=== PATIENT | male | born 1965 | race Caucasian/White ===

== ENCOUNTER → 2024-09-08 15:51 | Outpatient (BNVA) | payer SELFPAY | PROVIDERS: PCP Registered Nurse; Visit Provider Nurse Practitioner Family | DX: I10 Essential (primary) hypertension (principal); R03.0 Elevated blood-pressure reading, without diagnosis of hypertension | CPT/HCPCS: 80053; 80061 ==

== ENCOUNTER 2025-07-07 12:23 | Emergency (ER) | payer SELFPAY ==
[2025-07-07 12:29] VITALS: BP 153/90; PULSE 101; RESP 18; TEMP 37.1; O2SAT 98; BMI 29.9
--- NOTE | 2025-07-07 13:45 | CTR_ITS ---
PROCEDURE INFORMATION: Exam: CT Abdomen And Pelvis With Contrast Exam date and time: 07/07/2025 3:08 PM Age: 59 years old Clinical indication: Other: Testicular pain; Additional info: Testicular pain, perineal swelling/redness, abscess TECHNIQUE: Imaging protocol: Computed tomography of the abdomen and pelvis with contrast. Radiation optimization: All CT scans at this facility use at least one of these dose optimization techniques: automated exposure control; mA and/or kV adjustment per patient size (includes targeted exams where dose is matched to clinical indication); or iterative reconstruction. Contrast material: [id number]; Contrast volume: 100 ml; Contrast route: INTRAVENOUS (IV); COMPARISON: No relevant prior studies available. RADIATION DOSE METRICS: Total DLP (mGy-cm): 684.33 FINDINGS: Lungs: The lung bases are clear. Liver: Unremarkable. No abnormally enhancing liver lesions. Gallbladder and biliary ducts: Unremarkable. No radiopaque cholelithiasis. No biliary ductal dilatation. Pancreas: Unremarkable. No pancreatic ductal dilatation. Spleen: Unremarkable. Adrenal glands: 0.9 cm left adrenal nodule, too small to characterize. Right adrenal gland is unremarkable. Kidneys and ureters: Symmetric bilateral renal enhancement. No hydronephrosis. Punctate nonobstructing left renal stone. Bilateral renal cortical hypoattenuating foci too small to characterize. Stomach and bowel: The stomach is unremarkable. No bowel obstruction. Sigmoid colonic diverticulosis without acute diverticulitis Appendix: Appendix is unremarkable. Intraperitoneal space: No ascites or intraperitoneal free air. Vasculature: Atherosclerotic aortoiliac intimal calcifications. Lymph nodes: 2.1 cm periportal lymph node, nonspecific. Urinary bladder: Unremarkable. Reproductive: Prostate gland is unremarkable. Small right hydrocele. Bones/joints: Small fluid around the right hip in the adductor musculature (series 3, image 80). Degenerative changes of the spine. No acute fracture or dislocation. Soft tissues: Small bilateral fat-containing inguinal hernias. Skin thickening and enhancement in the perineum. 3.2 x 1.0 cm ill-defined fluid collection (series 3, image 97). No subcutaneous tracking gas. Scrotal edema. CT/CT abdomen pelvis w con* [id number] IMPRESSION: 1. Perineal skin thickening and enhancement compatible with cellulitis. Phlegmonous changes with small developing abscess. 2. Mild scrotal edema. 3. Small right hydrocele. COMMENTS: Consistent with the [employer]'s Incidental Findings Committee white paper (J Am Dinesh Radiol 2017): Any incidental adrenal lesion less than 1 cm is likely benign. No follow-up imaging is recommended for these lesions per consensus recommendations based on imaging criteria. Further lab evaluation could be pursued if warranted based on clinical findings.
--- NOTE | 2025-07-07 13:51 | ED_ITS ---
HPI - Skin/Abscess/Foreign Bdy 2 General: Chief complaint: Skin/Abscess/Foreign Body Stated complaint: Bump in between Rectum and testicles hurts Time Seen by Provider: 07/07/25 13:33 Source: patient Mode of arrival: ambulatory Limitations: no limitations History of Present Illness: Patient is a 59-year-old male who presents emergency department complaining of lesion to the perineal region that has been present for the past 4 to 5 months. States that he has an area that he thinks began as an ingrown hair but has developed into redness and profuse swelling that involves the rectum all the way to his testicles, notes that the area is severely painful and worse with sitting. 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 He also notes that intermittently he will note greenish-brownish drainage of the area. However he is not feeling systemically ill as he is denying any fevers, nausea or vomiting, weakness, abdominal pain, or any other symptoms. Overall is noting that the pain is from rectum to testicles, and that the redness and swelling has been getting worse. Patient is not diabetic. MD complaint: abscess/boil and lesion Onset (ago): month(s) Location: buttocks and genitals Pain Consistency: constant Exacerbating factors: other (Sitting, movement) Context: other ( Thinks began as an ingrown hair ) Associated symptoms: Deny chills, fever(s), nausea or vomiting Treatments prior to arrival: none Related Data Home Medications ?Medication ?Instructions ?Recorded ?Confirmed ibuprofen 200 mg tablet (Advil) 400 mg PO QAM PRN Pain 07/07/25 07/07/25 magnesium 200 mg tablet 200 mg PO QAM 07/07/2507/07 milk thistle seed extract 175 mg 175 mg PO QAM 5 07/07/25 tablet Previous Rx's ?Medication ?Instructions ?Recorded doxycycline hyclate 100 mg tablet 100 mg PO BID 10 day s #20 tabs 07/07/25 Allergies Allergy/AdvReac Type Severity Reaction Status Date / Time No Known Allergies Allergy Verified 06/14/22 15:09 Review of Systems 2 General: Reports: 10 or more systems reviewed and unremarkable except in HPI and below Const: Denies: fever(s) or chills Card: Denies: chest pain Resp: Denies: dyspnea GI: Reports: rectal pain and rectal swelling; Denies: abdominal pain, nausea, vomiting or diarrhea : Reports: testicular pain and scrotal swelling Musc: Denies: extremity pain or joint pain Skin/Breast: Reports: erythema, skin pain, skin tenderness, skin swelling and new lesions; Denies: rash Neuro: Denies: headache(s) PFSH ED 2 PFSH: Surgical History Hx of lumbosacral spine surgery Hx of tonsillectomy Family History Father CAD (coronary artery disease) Mother Diabetes breast Hypertension Parkinson disease Brother , Massive Heart Attack No problems noted. Social History Smoking and tobacco/nicotine status: current every day tobacco/nicotine user Quit status (tobacco/nicotine): has tried quititng Substance/Drug Use: never Adopted: No Caregiver/support person: No Lives independently: Yes service: No Current occupational status: employed Do you think of yourself as: Straight/Heterosexual Current gender identity: Male Physical Exam 2 Const: COMMON NORMALS: no acute distress, average body habitus, patient oriented x3, no limitations, healthy appearing, alert and well nourished HENMT: COMMON NORMALS: normocephalic and atraumatic HEAD & SCALP: n ormocephalic and atraumatic Neck/C-Spine: COMMON NORMALS: full ROM, no lymphadenopathy, supple and no meningeal signs Resp: COMMON NORMALS: normal respiratory effort, No use of accessory muscles and clear to auscultation bilaterally AUSCULTATION: clear to auscultation bilaterally Cardio: COMMON NORMALS: regular rate and regular rhythm RATE: regular rate RHYTHM: regular rhythm GI: COMMON NORMALS: Soft to palpation and non-tender PALPATION: Yes Soft to palpation OTHER: There is a palpable area of fluctuance to the right of the patient's rectum, the perineum is diffusely red and tender and swollen. Easily reproducible tenderness to palpation from testicles to rectum. No active drainage noted. Extremity: COMMON NORMALS: full ROM and capillary refill normal Neuro: COMMON NORMALS: patient oriented x3 SENSORIUM/ORIENTATION: Yes alert MENINGEAL SIGNS: Yes no meningeal signs Skin: COMMON NORMALS: no rashes or lesions noted, no wounds and turgor normal GENERAL SKIN EXAM: no rashes or lesions noted and turgor normal Procedures Abscess I/D Site: sandra-rectal Local Anesthetic: lidocaine 2% and with epi Amount of anesthesia used (mL): 6 Technique: incised with #11 blade Amount of fluid expressed (mL): 10 Irrigation: Yes Packing used?: none Course 2 Vital Signs: Vital signs: Vital Signs Temperature 98.8 F 07/07/25 12:29 Pulse Rate 84 07/07/25 16:05 Respiratory Rate 18 07/07/25 12:29 Blood Pressure 148/84 07/07/25 16:05 Pulse Oximetry 96 07/07/25 16:05 Oxygen Delivery Me thod Room Air 07/07/25 16:05 MDM - Skin/Abscess/Foreign Bdy Medicial Decision Making This patient presented with an acute on chronic worsening of a perineal lesion, which on exam appears to be consistent with an abscess. He had no symptoms of systemic illness, this has been an issue for the past 4 to 5 months but states that recently has been getting to where he cannot sit without severe pain. As mentioned on exam there was fluctuance to an area of the perineum and evidence of surrounding cellulitis. He had no history of diabetes making Kierra's gangrene less likely, however labs were checked and reassuring. This included unremarkable inflammatory markers of CRP and ESR, no leukocytosis, and normal blood sugar. To rule out any deep space infection, CT abdomen and pelvis ordered showing the cellulitis as clinically commented on, and a small developing abscess. The CT finding was correlated with the physical exam and after I&D was able to express approximately 10 cc of drainage, with an incision and significant enough that did not require any packing. This did greatly improve the patient's symptoms and after IV Zosyn here in the emergency department, appears to be stable for discharge home and outpatient antibiotics for the evidence of surrounding cellulitis. He is informed on how to care for the wound at home, signs and symptoms to watch for, and importance of finishing out antibiotic therapy despite relief of symptoms. He will be given a few days off of work, and all other questions and concerns addressed. Lab Data 07/07/25 14:08 07/07/25 14:08 Radiology Impressions Abdomen/Pelvis CT 07/07/25 13:45 IMPRESSION: 1. Perineal skin thickening and enhancement compatible with cellulitis. Phlegmonous changes with small developing abscess. 2. Mild scrotal edema. 3. Small right hydrocele. COMMENTS: Consistent with the [employer]'s Incidental Findings Committee white paper (J Am Dinesh Radiol 2017): Any incidental adrenal lesion less than 1 cm is likely benign. No follow-up imaging is recommended for these lesions per consensus recommendations based on imaging criteria. Further lab evaluation could be pursued if warranted based on clinical findings. Laboratory Results WBC 9.23 10^3/uL (3.29-11.43) 07/07/25 14:08 RBC 4.59 10^6/uL (3.85-5.65) 07/07/25 14:08 Hgb 15.30 g/dL (11.27-16.99) 07/07/25 14:08 Hct 45.5 % (37-53) 07/07/25 14:08 MCV 99.1 fl (82-101) 07/07/25 14:08 MCH 33.3 pg (27-33) H 07/07/25 14:08 MCHC 33.6 g/dL (30-55) 07/07/25 14:08 RDW 12.2 % (12.1-15.1) 07/07/25 14:08 Plt Count 251 10^3/cmm (157-399) 07/07/25 14:08 MPV 9.3 fL (7.4-10.4) 07/07/25 14:08 Neut % (Auto) 66.3 % 07/07/25 14:08 Lymph % (Auto) 20.7 % 07/07/25 14:08 [place] % (Auto) 12.1 % 07/07/25 14:08 Eos % (Auto) 0.3 % 07/07/25 14:08 Baso % (Auto) 0.3 % 07/07/25 14:08 Neut # (Auto) 6.11 10^3/uL (1.8-7.7) 07/07/25 14:08 Lymph # (Auto) 1.9 10^3/uL (0.8-4.8) 07/07/25 14:08 [place] # (Auto) 1.1 10^3/uL (0.2-0.9) H 07/07/25 14:08 Eos # (Auto) 0.0 10^3/uL (0.0-0.8) 07/07/25 14:08 Baso # (Auto) 0.0 10^3/uL (0.0-0.1) 07/07/25 14:08 Nucleated RBC % (auto) 0 % 07/07/25 14:08 Nucleated RBCs # 0.0 /100WBC 07/07/25 14:08 ESR 6 mm/hr (0-10) 07/07/25 14:08 Sodium 140 mmol/L (136-145) 07/07/25 14:08 Potassium 3.9 mmol/L (3.5-5.1) 07/07/25 14:08 Chloride 102 mmol/L (98-107) 07/07/25 14:08 Carbon Dioxide 27 mmol/L (22-29) 07/07/25 14:08 Anion Gap 14.9 (5-19) 07/07/25 14:08 BUN 13 mg/dL (6-20) 07/07/25 14:08 Creatinine 0.8 mg/dL (0.7-1.2) 07/07/25 14:08 GFR Calculation 98.9 mL/min (90-130) 07/07/25 14:08 Glucose 72 mg/dL (65-115) 07/07/25 14:08 Calculated Osmolality 289 mOsm/kg (285-295) 07/07/25 14:08 Calcium 8.6 mg/dL (8.5-10.5) 07/07/25 14:08 Total Bilirubin 0.4 mg/dL (0.15-1.2) 07/07/25 14:08 AST 20 U/L (0-40) 07/07/25 14:08 ALT 17 U/L (0-41) 07/07/25 14:08 Alkaline Phosphatase 93 U/L (40-130) 07/07/25 14:08 C-Reactive Protein 19.3 mg/L (0.0-4.9) H 07/07/25 14:08 Total Protein 7.3 g/dL (6.6-8.7) 07/07/25 14:08 Albumin 4.1 g/dL (3.5-5.2) 07/07/25 14:08 Globulin 3.2 g/dL (1.3-4.6) 07/07/25 14:08 All radiology interpretation(s) finalized by discharge Discharge Plan Discharge Patient Disposition: Home Clinical Impression: Abscess of perineum, Cellulitis of perineum Condition: Stable Prescriptions: New doxycycline hyclate 100 mg tablet 100 mg PO BID 10 Days Qty: 20 0RF No Action ibuprofen [Advil] 200 mg Tablet 400 mg PO QAM PRN (Reason: Pain) magnesium 200 mg Tablet 200 mg PO QAM milk thistle seed extract 175 mg Tablet 175 mg PO QAM Rx Instructions: give with meal/snack Discharge Orders: Discharge ED (Routine); Ordered 07/07/25 Ordered By: Garry Khoury Referrals: Raquel Goodwin FNP [Primary Care Provider, Family Practice] Patient Instructions: Patient Portal & Bisi Instructions Activity Restrictions/Additional Instructions: Perineal Abscess Discharge Discharge Instructions: Incision and Drainage of Perineal Abscess You have undergone a procedure to drain a perineal abscess. The wound was left open to heal naturally and will not require packing. This approach is supported by recent studies showing less pain and similar healing rates compared to packing. Wound Care - Keep the area clean and dry. Gently wash with warm water daily and after bowel movements; pat dry with a clean towel. - Cover the wound with a clean, dry gauze pad. Change the dressing if it becomes wet or soiled. - Avoid applying creams, ointments, or powders unless specifically instructed. Medications - Take doxycycline 100 mg by mouth twice daily for 10 days as prescribed. Finish the entire course, even if you feel better. - Do not take antacids, iron supplements, or calcium-containing products within 2 hours of doxycycline, as these can reduce its effectiveness. - If you are on blood thinners or oral contraceptives, be aware that doxycycline may affect their effectiveness. Discuss with your healthcare provider if needed. Activity - Rest as needed. You have been provided a work note for two days off; you may return to work after this period if you feel well. - Avoid strenuous activity until the wound is healing well and pain is minimal. Follow-Up - Schedule a follow-up appointment as directed by your provider to monitor healing. Return Precautions Contact your healthcare provider or seek medical attention if you experience: - Increasing redness, swelling, or pain around the wound - Fever (temperature above 100.4?F/38?C) - Chills or feeling generally unwell - Persistent or worsening drainage, foul odor, or bleeding from the wound - Difficulty urinating or having bowel movements - Signs of an allergic reaction (rash, itching, swelling, difficulty breathing) Additional Information - Recurrence of abscess or development of a fistula is possible; prompt attention to new symptoms is important. - Imaging follow-up is not routinely required unless there is recurrence or poor healing. If you have any questions or concerns, please contact your healthcare provider. Stand Alone Forms: Work/School Release Print Language: Yoruba Coding Level of Care Code ED Technical Support Agent for Josse Patel
[2025-07-07 14:31] LABS: Hematocrit 45.5 % (37-53); Hemoglobin 15.30 g/dL (11.27-16.99); Mean Corpuscular HGB Conc 33.6 g/dL (30-55); Mean Corpuscular Hemoglobin 33.3 pg (27-33); Mean Corpuscular Volume 99.1 fl (82-101); Nucleated Red Blood Cells % 0 %; Platelet Count 251 10^3/cmm (157-399); Red Blood Count 4.59 10^6/uL (3.85-5.65); White Blood Count 9.23 10^3/uL (3.29-11.43)
[2025-07-07 14:52] LABS: Alanine Aminotransferase 17 U/L (0-41); Albumin Level 4.1 g/dL (3.5-5.2); Alkaline Phosphatase 93 U/L (40-130); Anion Gap 14.9 (5-19); Aspartate Amino Transferase 20 U/L (0-40); Blood Urea Nitrogen 13 mg/dL (6-20); Calcium 8.6 mg/dL (8.5-10.5); Carbon Dioxide 27 mmol/L (22-29); Chloride 102 mmol/L (98-107); Globulin 3.2 g/dL (1.3-4.6); Glucose 72 mg/dL (65-115); Osmolality Calculated 289 mOsm/kg (285-295); Potassium 3.9 mmol/L (3.5-5.1); Sodium 140 mmol/L (136-145); Total Protein 7.3 g/dL (6.6-8.7)
[2025-07-07] MEDS: iohexol 350 mg/mL 500 mL Btl (per mL) IV (15:10)
--- OUTSIDE RECORDS SUMMARY | 2025-07-07 15:15 | XMS_ITS | Clinical Summary ---
Author Organization [employer] Address [address] Attn: Epic Prelude ADT [place] [address] Care Team Providers Care Mechanical Cad Designer Name Role Phone Angel Mckay MD Primary Care Provider [phone] Allergies No known active allergies Medications No known medications Active Problems Problem Noted Date Diagnosed Date Muscle spasm of back 07/06/2022 Cigarette dependence 09/29/2015 Hyperlipidemia 10/06/2012 Family History Medical History Relation Name Comments Diabetes Brother 1 Hypertension Brother 1 Cancer Brother 2 Depression Brother 2 Heart Disease Brother 2 Hypertension Brother 2 Heart Disease Brother 3 Diabetes Father Other Father Diabetes Mother Hypertension Mother Other Mother Diabetes Sister 1 Hypertension Sister 1 Stroke Sister 1 Diabetes Sister 2 Heart Disease Sister 2 Diabetes Sister 3 Hypertension Sister 3 Other Sister 3 Relation Name Status Comments Brother 1 Brother 2 Alive Brother 3 Father Mother Sister 1 Alive Sister 2 Alive Sister 3 Alive Social History Tobacco Use Types Packs/Day Years Used Date Smoking Tobacco: Every Day Cigarettes Smokeless Tobacco: Former Comments:Quit smoking: chewe d one time only Alcohol Use Standard Drinks/Week Comments Yes 0 (1 standard drink = 0.6 oz pur e alcohol) Sex and Gender Information Value Date Recorded Sex Assigned at Not on file 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 Gender Identity Not on file Sexual Orientation Not on file Last Filed Vital Signs Vital Sign Reading Time Taken Comments Blood Pressure 138/98 07/06/2022 2:00 PM CAR WRECKER Pulse 69 07/06/2022 2:00 PM CAR WRECKER Temperature 36.6 C (97.8 F) 07/06/2022 12:41 PM CAR WRECKER Respiratory Rate 18 07/06/2022 1:15 PM CAR WRECKER Oxygen Saturation 99% 07/06/2022 2:00 PM CAR WRECKER Inhaled Oxygen Concentration - - Weight 81.8 kg (180 lb 6.4 oz) 07/06/2022 12:41 PM CAR WRECKER Height 167.6 cm (5' 6 ) 07/06/2022 12:41 PM CAR WRECKER Body Mass Index 29.12 07/06/2022 12:41 PM CAR WRECKER Plan of Treatment Health Maintenance Due Date Last Done Comments DTAP/TDAP/TD VACCINES (1 - Tdap) 1984 HEPATITIS B VACCINES (1 of 3 - 19+ 3-dose series) 11/18 COLORECTAL SCREENING 2010 Colorectal Cancer Screening 2010 FIT-DNA Q 3 years 2010 FIT/FOBT Q 1 year 2010 Flex Sig/CT Colonography Q 5 years 2010 ZOSTER VACCINE (1 of 2) 12/12/2015 INFLUENZA VACCINE (#1) 2025 05/23/2018 Care Teams Mechanical Cad Designer Relationship Specialty Start Date End Date Angel Mckay MD [address] [facility] [address] [place] [address] PCP - General Family Practice 05/25/18
--- OUTSIDE RECORDS SUMMARY | 2025-07-07 15:15 | XMS_ITS | Encounter Summary ---
Author Organization [facility] Address [address] [place] [address] Care Team Providers Care Sales Engagement Executive Name Role Phone Angel Mckay MD Primary Care Provider [phone] Encounter Details Date Type Department Care Team (Late st Contact Info) Description 04/14/2018 Lab Requisition [facility] [place] [address] [place] [address] Barbara Owens, HARDENING MACHINE OPERATOR HELPER [address] [place] [address] Social History Tobacco Use Types Packs/Day Years Used Date Smoking Tobacco: Every Day Cigarettes Smokeless Tobacco: Never Alcohol Use Standard Drinks/Week Comments Yes 0 (1 standard drink = 0.6 oz pur e alcohol) occ Sex and Gender Information Value Date Recorded Sex Assigned at Not on file 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 Gender Identity Not on file Sexual Orientation Not on file Occupation Industry Job Start Date Job End Date Not on file Not on file Not on file Not on file documented as of this encounter Plan of Treatment Not on file documented as of this encounter Procedures Procedure Name Priority Date/Time Associated Diagnosis Comments CBC WITH DIFFERENTIAL Routine 04/14/2018 10:10 PM CDT BASIC METABOLIC PANEL Routine 04/14/2018 10:10 PM CDT documented in this encounter Results * (ABNORMAL) CBC WITH DIFFERENTIAL (04/14/2018 10:10 PM CDT) WBC 12.4(H) 4.2 - 9.1 K/uL 04/15/2018 5:24 AM [facility] RBC 5.34 4.63 - 6.08 M/uL 04/15/2018 5:24 AM [facility] HEMOGLOBIN 17.3 13.7 - 17.5 g/dL 04/15/2018 5:24 AM [facility] HEMATOCRIT 52.7(H) 40.1 - 51.0 % 04/15/2018 5:24 AM [facility] MCV 98.7(H) 79.0 - 92.2 fL 04/15/2018 5:24 AM [facility] MCH 32.4(H) 25.7 - 32.2 pg 04/15/2018 5:24 AM [facility] MCHC 32.8 32.3 - 36.5 g/dL 04/15/2018 5:24 AM [facility] RDW 13.3 11.0 - 14.5 % 04/15/2018 5:24 AM [facility] RDW-STDEV 48.2 36.9 - 56.9 fL 04/15/2018 5:24 AM [facility] PLATELETS 275 130 - 400 K/uL 04/15/2018 5:24 AM [facility] MPV 10.2 10.0 - 14.8 fL 04/15/2018 5:24 AM [facility] NEUTROPHILS 64 34 - 68 % 04/15/2018 5:24 AM [facility] LYMPHOCYTES 24 22 - 53 % 04/15/2018 5:24 AM [facility] MONOCYTES 10 5 - 12 % 04/15/2018 5:24 AM [facility] EOSINOPHILS 2 1 - 7 % 04/15/2018 5:24 AM [facility] BASOPHILS 0 0 - 1 % 04/15/2018 5:24 AM [facility] IMMATURE GRANULOCYTES 0 % 04/15/2018 5:24 AM [facility] NEUTROPHIL ABSOLUTE 7.98(H) 1.78 - 5.38 K/uL 04/15/2018 5:24 AM CDT [facility] LYMPHOCYTE ABSOLUTE 2.95 1.20 - 3.40 K/uL 04/15/2018 5:24 AM T [facility] MONOCYTE ABSOLUTE 1.19(H) 0.30 - 0.82 K/uL 04/15/2018 5:24 AM [facility] EOSINOPHIL ABSOLUTE 0.25 0.04 - 0.54 K/uL 04/15/2018 5:24 AM [facility] BASOPHILS ABSOLUTE 0.03 0.01 - 0.08 K/uL 04/15/2018 5:24 AM [facility] IMMATURE GRANULOCYTES ABSOLUTE 0.04 K/uL 04/15/2018 5:24 AM [facility] Blood Collection / Unknown 04/14/2018 10:10 PM CDT 04/15/2018 4:25 AM CDT Barbara Owens HARDENING MACHINE OPERATOR HELPER HEMATOLOGY ORDERABLES Fin al Result [facility] CLIA # [id number] [address] [place] [id number] * BASIC METABOLIC PANEL (04/14/2018 10:10 PM CDT) SODIUM 141 136 - 145 mmol/L 04/15/2018 5:37 AM [facility] POTASSIUM 4.5 3.5 - 5.1 mmol/L 04/15/2018 5:37 AM [facility] CHLORIDE 102 98 - 107 mmol/L 04/15/2018 5:37 AM [facility] CO2 23 22 - 29 mmol/L 04/15/2018 5:37 AM [facility] CALCIUM 9.4 8.6 - 10.0 mg/dL 04/15/2018 5:37 AM [facility] BUN 14 6 - 20 mg/dL 04/15/2018 5:37 AM [facility] CREATININE 0.89 0.67 - 1.17 mg/dL 04/15/2018 5:37 AM [facility] GLUCOSE 83 74 - 99 mg/dL 04/15/2018 5:37 AM CDT [facility] GFR >60 >=60 mL/min/1.7 3 sq meter 04/15/2018 5:37 AM CDT [facility] Comment: eGFR has not been validated for use in the elderly (> 70 years of age), women, patients with serious co-morbid conditions, or persons with extremes of body size or muscle mass and should also be interpreted with caution in patients with acute kidney failure, dialysis dependent patients, patients reporting exceptional dietary intake (e.g. vegetarian diet, high protein diets, creatine supplementation), and patients with severe liver disease. Based on National Kidney Disease Education Program If patient is , please refer to the GFR result. GFR, >60 >=60 mL/min/1.7 3 sq meter 04/15/2018 5:37 AM CDT [facility] ANION GAP 16 12 - 20 mmol/L 04/15/2018 5:37 AM [facility] Blood Collection / Unknown 04/14/2018 10:10 PM CDT 04/15/2018 4:25 AM CDT Barbara ROSADOP CHEMISTRY ORDERABLES Suzi garcia Result [id number] [address] [address] documented in this encounter Visit Diagnoses Not on filedocumented in this encounter Care Teams Sales Engagement Executive Relationship Specialty Start Date End Date Angel Mckay MD [address] [id number] PCP - General Family Practice 05/25/18 documented as of this encounter
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
--- OUTSIDE RECORDS SUMMARY | 2025-07-07 15:16 | XMS_ITS | Encounter Summary ---
Author Organization [facility] Address [address] [place] [address] Care Team Providers Care Rewriter Name Role Phone Angel Mckay MD Primary Care Provider [phone] Encounter Details Date Type Department Care Team (Late st Contact Info) Description 04/30/2016 Lab Requisition [facility] [id number] [place] [address] Adama Marley MD NO ADDRESS ON FILE Social History Tobacco Use Types Packs/Day Years Used Date Smoking Tobacco: Every Day Cigarettes Smokeless Tobacco: Never Alcohol Use Standard Drinks/Week Comments Yes 0 (1 standard drink = 0.6 oz pur e alcohol) occ Sex and Gender Information Value Date Recorded Sex Assigned at Not on file 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 Gender Identity Not on file Sexual Orientation Not on file Occupation Industry Job Start Date Job End Date Not on file Not on file Not on file Not on file documented as of this encounter Plan of Treatment Not on file documented as of this encounter Procedures Procedure Name Priority Date/Time Associated Diagnosis Comments GLUCOSE FASTING Routine 04/30/2016 9:20 AM CDT LIPID PANEL Routine 04/30/2016 9:20 AM CDT documented in this encounter Results * GLUCOSE FASTING (04/30/2016 9:20 AM CDT) GLUCOSE-FASTIN G 81 70 - 99 mg/dL 04/30/2016 1:22 PM CDT [facility] Hair Scynce [facility] Blood Collection / Unknown 04/30/2016 9:20 AM CDT 04/30/2016 12:12 PM CDT [facility] - 04/30/2016 1:22 PM CDT <100 mg/dl: Normal Fasting Glucose 100-125 mg/dl: Impaired Fasting Glucose >/=126 mg/dl: Provisional diagnosis of Diabetes The diagnosis must be confirmed. us Adama Marley MD CHEMISTRY ORDERABLES Final Res ult [facility] CLIA# [id number] [address] [place] [address] * (ABNORMAL) LIPID PANEL (04/30/2016 9:20 AM CDT) CHOLESTEROL 151 <200 mg/dL 04/30/2016 1:22 PM CDT [facility] TRIGLYCERIDE 75 <150 mg/dL 04/30/2016 1:22 PM CDT [facility] HDL 33(L) 40 - 59 mg/dL 04/30/2016 1:22 PM T [facility] LDL CALCULATED 103(H) <100 mg/dL 04/30/2016 1:22 PM CDT [facility] NON-HDL CHOLESTEROL 118 <130 mg/dL 04/30/2016 1:22 PM T [facility] Blood Collection / Unknown 04/30/2016 9:20 AM CDT 04/30/2016 12:12 PM CDT Og [facility] - 04/30/2016 1:22 PM CDT TOTAL CHOLESTEROL mg/dL Desirable <200 Borderline high 200-239 High >=240 TRIGLYCERIDES mg/dL Normal <150 Borderline high 150-199 High 200-499 Very high >=500 HDL CHOLESTEROL mg/dL Low <40 Normal 40-59 Desirable >=60 NON HDL CHOLESTEROL mg/dL Optimal <130 Near Optimal 130-159 Borderline High 160-189 Very High >=190 Calculated LDL mg/dL Optimal <100 Near Optimal 100-129 Borderline High 130-159 High 160-189 Very High >=190 ATPIII Guidelines Reference Ranges for Lipid Panels (NCEP/AMA) us Adama Marley MD CHEMISTRY ORDERABLES Final Res ult [facility]# [id number] [address] [place] [address] documented in this encounter Visit Diagnoses Not on filedocumented in this encounter Care Teams Rewriter Relationship Specialty Start Date End Date Angel Mckay MD [address] [facility] [address] [place] [id number] PCP - General Family Practice 05/25/18 documented as of this encounter
--- OUTSIDE RECORDS SUMMARY | 2025-07-07 15:16 | XMS_ITS | Encounter Summary ---
Author Organization [facility] Address [address] [place] [address] Care Team Providers Care Civil Preparedness Coordinator Name Role Phone Angel Mckay MD Primary Care Provider [phone] Encounter Details Date Type Department Care Team (Latest Contact Info) Description 12/04/2006 Outpatient Historical [facility] [address] [address] Tessie Delacruz MD NO ADDRESS ON FILE Pain in Joint, Shoulder Region (Primary Dx) Social History Tobacco Use Types Packs/Day Years Used Date Smoking Tobacco: Never Assessed Sex and Gender Information Value Date Recorded Sex Assigned at Not on file 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
[2025-07-07] MEDS: piperacillin-tazobactam 3.375 GM in sodium chloride 0.9% (plus) 50 ML IV (15:44)
[2025-07-07] MEDS: lidocaine-epi 2% 20 mL INJ INJECTION (16:01)
[2025-07-07 16:05] VITALS: BP 148/84; PULSE 84; O2SAT 96
[2025-07-07 16:54] VITALS: BP 134/79; PULSE 79; O2SAT 97
== END 2025-07-07 16:56 | disposition home or self-care (01) ==
PROVIDERS: Emergency Provider Physician Assistant; PCP Registered Nurse
DX: L02.215 Cutaneous abscess of perineum (principal); L03.315 Cellulitis of perineum; Z72.0 Tobacco use
CPT/HCPCS: 10060; 36415; 74177; 80053; 85025; 85651; 86140; 96374; 99285; J2543; J9999